=== PATIENT | female | born 1980 | race African-American/Black ===

== ENCOUNTER 2022-07-18 08:33 | Day surgery (SDC) | payer OTHER ==
[~2022-07-18] VITALS: Ht 175.3 cm; Wt 83.9 kg
[2022-07-18] MEDS ORDERED: ONE-A-DAY ESSE1 EACH PO (09:30)
[2022-07-18] MEDS ORDERED: COLLAGEN PO (09:30)
[2022-07-18 09:38] VITALS: BP 119/83; PULSE 82; TEMP 97.8
[2022-07-18 10:45] VITALS: BP 122/84; PULSE 73; TEMP 96.9
--- NOTE | 2022-07-18 10:45 | NUR ---
Patient arrives to [facility] via cart, accompanied by Endo RN. SHe is alert and oriented. SHe ambulates to the chair in her room with standby assist and steady gait. PIV to TKO. She denies pain or nausea. Monitoring is applied - VSS and WNL on room air. She has water and crackers.
[2022-07-18 11:00] VITALS: BP 114/84; PULSE 74
--- NOTE | 2022-07-18 11:00 | NUR ---
Patient and her are emotional after speaking with Dr. Nguyen. Offered support and encouraged them to please let staff know if there is anything we can do to assist in this difficult time. They respond that they have a few more questions for Dr. Nguyen. She is currently in a procedure but will come and talk with them again when she is done. They are given a pen and a piece of paper to help organize their questions, which they are thankful for.
--- NOTE | 2022-07-18 11:31 | NUR ---
Patient is tearful, trying to process information. Discharge instructions are discussed with her and her spouse. It is emphasized that everything is typed out in her discharge folder, so they can go back and refer to that if needed. Offered again to help in any way we can. PIV is removed with catheter intact and hemostasis achieved. She is changing to her clothing independently.
--- NOTE | 2022-07-18 11:58 | NUR ---
Dr. Nguyen talks with the patient and her spouse again. They have what questions they can think of now answered. They are escorted to the exit via wheelchair by staff and discharged to home with ride in private vehicle at [id number].
== END 2022-07-18 11:58 | disposition home or self-care (01) ==
LOC: SDCO 08:33
DX: K62.0 Anal polyp (principal); K63.89 Other specified diseases of intestine; Z80.0 Family history of malignant neoplasm of digestive organs
CPT/HCPCS: J2704; J3010; J7030